=== PATIENT | female | born 1955 | race Caucasian/White ===

== ENCOUNTER 2020-01-09 18:29 | Emergency (ER) | payer OTHER ==
[~2020-01-09] VITALS: Ht 160 cm; Wt 61.2 kg
[2020-01-09 18:38] VITALS: BP 131/64
[2020-01-09] MEDS ORDERED: BACITRACIN OINT 500 UNITS/GM PKT TP ONE ×2 (20:02→20:05)
[2020-01-09] MEDS ORDERED: KETOROLAC 30 MG/ML VIAL IM ONE (20:05)
[2020-01-09 20:38] VITALS: BP 131/64
== END 2020-01-09 20:38 | disposition home or self-care (01) ==
LOC: MED 18:29
DX: S00.01XA Abrasion of scalp, initial encounter (principal); R03.0 Elevated blood-pressure reading, without diagnosis of hypertension; W19.XXXA Unspecified fall, initial encounter; Y93.89 Activity, other specified; Y92.89 Other specified places as the place of occurrence of the external cause; Y99.8 Other external cause status
CPT/HCPCS: 70450; 90471; 90715; 96372; 99284; J1885

== ENCOUNTER 2022-04-19 21:11 | Emergency (ER) | payer OTHER ==
[~2022-04-19] VITALS: Ht 160 cm; Wt 56.7 kg
[2022-04-19 21:15] VITALS: BP 145/74
--- NOTE | 2022-04-19 21:15 | NUR ---
TO BED VIA WHEELCHAIR
--- NOTE | 2022-04-19 21:29 | NUR ---
Dr. Hilario examining patient.
[2022-04-19] MEDS ORDERED: ACETAMINOPHEN EXTRA STRENGTH 500 MG TAB PO ONE (21:30)
--- NOTE | 2022-04-19 21:35 | NUR ---
Pt BIB family to ED with a hx of rheumatoid arthritis presents to the ED for an evaluation of right-sided scalp laceration with associated pain after suffering a fall in her home at approximately 2030 today. She states she tripped while ambulating. Pt reports generalized weakness in both lower extremities. Pt notes being seen in the ED 3 years ago and received a Tetanus booster injection during that visit. Does not have any alleviating or exacerbating factors.
--- NOTE | 2022-04-19 21:44 | NUR ---
Patient taken to CT scan via WC.
--- NOTE | 2022-04-19 22:00 | NUR ---
Pt back from CT Scan, in stable condition. Well tolerated
[2022-04-19 22:52] VITALS: BP 128/69
--- NOTE | 2022-04-19 22:52 | NUR ---
Patient discharged with v/s stable. Written and verbal after care instructions given and explained. Patient verbalized understanding. Ambulatory with steady gait. All questions addressed prior to discharge. Advised to follow up with PMD.
== END 2022-04-19 22:52 | disposition home or self-care (01) ==
LOC: MED 21:11
DX: S01.01XA Laceration without foreign body of scalp, initial encounter (principal); S39.012A Strain of muscle, fascia and tendon of lower back, initial encounter; W18.30XA Fall on same level, unspecified, initial encounter; Y93.89 Activity, other specified; Y92.89 Other specified places as the place of occurrence of the external cause; Y99.8 Other external cause status
CPT/HCPCS: 70450; 72125; 72131; 99284

== ENCOUNTER 2022-11-04 11:57 | Emergency (ER) | payer OTHER ==
[~2022-11-04] VITALS: Ht 167.6 cm; Wt 65.8 kg
[~2022-11-04 11:57] MED LIST: HYDR-5191 PO; NITR100C7 PO
[2022-11-04 12:05] VITALS: BP 137/68; PULSE 67; RESP 17; TEMP 97.4; O2SAT 97
[2022-11-04] MEDS ORDERED: FAMOTIDINE 20 MG TAB PO ONE (12:35)
[2022-11-04] MEDS ORDERED: ACETAMINOPHEN 325 MG TAB PO ONE (12:35)
[2022-11-04] MEDS ORDERED: LOPERAMIDE 2 MG CAP PO ONE (12:35)
[2022-11-04 12:42] VITALS: O2SAT 97
[2022-11-04] MEDS ORDERED: HYDROcodone/APAP 5/325 MG 1 TAB TAB PO ONE (15:05)
[2022-11-04 15:10] VITALS: O2SAT 97
[2022-11-04] MEDS ORDERED: APIX5TAB PO (15:38)
[2022-11-04 16:15] VITALS: BP 116/62; PULSE 71; RESP 16; TEMP 98.1
[2022-11-04 16:31] VITALS: O2SAT 98
== END 2022-11-04 16:15 | disposition home or self-care (01) ==
LOC: MED 11:57
DX: S82.191A Other fracture of upper end of right tibia, initial encounter for closed fracture (principal); S82.491A Other fracture of shaft of right fibula, initial encounter for closed fracture; S82.092A Other fracture of left patella, initial encounter for closed fracture; I82.432 Acute embolism and thrombosis of left popliteal vein; W18.30XA Fall on same level, unspecified, initial encounter; Y93.89 Activity, other specified; Y92.89 Other specified places as the place of occurrence of the external cause; Y99.8 Other external cause status
CPT/HCPCS: 93970; 99285; Q0092